=== PATIENT | female | born 1945 | race Caucasian/White ===

== ENCOUNTER 2016-10-18 11:57 | Emergency (ER) | payer MEDICARE, BC ==
[~2016-10-18] VITALS: Ht 162.6 cm; Wt 90.9 kg
[2016-10-18 11:59] VITALS: TEMP 98.2
[2016-10-18] MEDS ORDERED: PRINIVIL40 MG PO (12:51)
[2016-10-18] MEDS ORDERED: LIPITOR20 MG PO (12:52)
[2016-10-18] MEDS ORDERED: GLUCOPHAGE500 MG/TAB PO (12:52)
[2016-10-18] MEDS ORDERED: PROTONIX 40MG T40 MG PO (12:52)
[2016-10-18] MEDS ORDERED: RESTORIL 1515 MG/CAP PO (12:53)
[2016-10-18] MEDS ORDERED: NEURONTIN100 MG/CAP PO (12:53)
[2016-10-18] MEDS ORDERED: PROAIR HFA0.09 MG/AC IH (12:53)
[2016-10-18] MEDS ORDERED: NORCO 325 MG-51 TAB PO (14:17)
[2016-10-18 15:39] VITALS: BP 126/55; PULSE 63
== END 2016-10-18 15:40 | disposition home or self-care (01) ==
LOC: COL.ER 11:57
DX: S52.571A Other intraarticular fracture of lower end of right radius, initial encounter for closed fracture (principal); M25.551 Pain in right hip; M79.621 Pain in right upper arm; W10.9XXA Fall (on) (from) unspecified stairs and steps, initial encounter; Y92.008 Other place in unspecified non-institutional (private) residence as the place of occurrence of the external cause; I10 Essential (primary) hypertension; E11.9 Type 2 diabetes mellitus without complications; Z79.84 Long term (current) use of oral hypoglycemic drugs; R40.2412 Glasgow coma scale score 13-15, at arrival to emergency department
CPT/HCPCS: J2270; J2405